=== PATIENT | female | born 1990 | race Caucasian/White ===

== ENCOUNTER 2017-02-25 08:55 | Emergency (ER) | payer OTHER ==
[~2017-02-25] VITALS: Ht 162.6 cm; Wt 82.5 kg
[2017-02-25 09:21] VITALS: BP 123/73
== END 2017-02-25 10:26 | disposition left against medical advice (07) ==
LOC: ED 08:55
DX: Z53.21 Procedure and treatment not carried out due to patient leaving prior to being seen by health care provider (principal)

== ENCOUNTER 2017-07-26 19:52 | Emergency (ER) | payer OTHER ==
[~2017-07-26] VITALS: Ht 162.6 cm; Wt 88.9 kg
[2017-07-26 22:15] VITALS: BP 117/66
== END 2017-07-26 22:15 | disposition home or self-care (01) ==
LOC: ED 19:52
DX: J06.9 Acute upper respiratory infection, unspecified (principal)
CPT/HCPCS: 87804

== ENCOUNTER 2017-12-26 06:02 | Emergency (ER) | payer OTHER ==
[~2017-12-26] VITALS: Ht 162.6 cm; Wt 79.9 kg
[2017-12-26 06:08] VITALS: Ht 162.6 cm; Wt 79.9 kg
[2017-12-26 06:49] VITALS: BP 119/83
== END 2017-12-26 06:49 | disposition home or self-care (01) ==
LOC: ED 06:02
DX: N39.0 Urinary tract infection, site not specified (principal)

== ENCOUNTER 2018-04-24 20:37 | Emergency (ER) | payer OTHER ==
[~2018-04-24] VITALS: Ht 162.6 cm; Wt 80.7 kg
[2018-04-24 20:42] VITALS: Ht 162.6 cm; Wt 80.7 kg
[2018-04-24 23:41] VITALS: BP 110/65
== END 2018-04-24 23:41 | disposition home or self-care (01) ==
LOC: ED 20:37
DX: N83.202 Unspecified ovarian cyst, left side (principal)

== ENCOUNTER 2018-05-23 11:55 | Emergency (ER) | payer OTHER ==
[~2018-05-23] VITALS: Ht 162.6 cm; Wt 81.2 kg
[2018-05-23 12:08] VITALS: BP 122/75; Ht 162.6 cm; Wt 81.2 kg
== END 2018-05-23 14:45 | disposition home or self-care (01) ==
LOC: ED 11:55
DX: J06.9 Acute upper respiratory infection, unspecified (principal); N83.209 Unspecified ovarian cyst, unspecified side

== ENCOUNTER 2019-04-29 16:48 | Emergency (ER) | payer OTHER ==
[~2019-04-29] VITALS: Ht 162.6 cm; Wt 87.5 kg
[2019-04-29 16:58] VITALS: Ht 162.6 cm; Wt 87.5 kg
[2019-04-29 20:57] VITALS: BP 117/1
== END 2019-04-29 20:57 | disposition home or self-care (01) ==
LOC: ED 16:48
DX: R10.2 Pelvic and perineal pain (principal); R31.9 Hematuria, unspecified; R10.30 Lower abdominal pain, unspecified; N83.209 Unspecified ovarian cyst, unspecified side

== ENCOUNTER 2020-07-09 15:58 | Emergency (ER) | payer OTHER ==
[~2020-07-09] VITALS: Ht 162.6 cm; Wt 86.2 kg
[2020-07-09 16:12] VITALS: Ht 162.6 cm; Wt 86.2 kg
[2020-07-09 17:10] LABS: BASOPHIL % 0.4 % (0.2-1.3); PLATELET COUNT 323 x10^3mcL (179-408)
[2020-07-09 17:10] LABS: UA SPECIFIC GRAVITY <=1.005 (1.005-1.035); microscopic required? YES; urine erythrocyte 3+ (NEGATIVE)
[2020-07-09 17:24] LABS: CALCIUM 8.6 mg/dL (8.5-10.1); CARBON DIOXIDE 25.1 mmol/L (21-32); CHLORIDE SERUM 103 mmol/L (98-107); CREATININE SERUM 0.6 mg/dL (0.6-1.0); GFR1 > 60 mL/min; GLUCOSE SERUM 95 mg/dL (74-106); POTASSIUM SERUM 3.7 mmol/L (3.5-5.1); SODIUM SERUM 136 mmol/L (136-145)
[2020-07-09 17:34] LABS: AMPHETAMINE QUAL UR NONE DETECTED (See below)
[2020-07-09 17:37] LABS: ALBUMIN 3.8 g/dL (3.4-5.0); ALKALINE PHOSPHATASE 85 U/L (46-116); ALT/SGPT 36 U/L (14-59); AST/SGOT 23 U/L (15-37); BILIRUBIN TOTAL 0.3 mg/dL (0.20-1.00); CHOLESTEROL 162 mg/dL (<200); HDL CHOLESTEROL 54 mg/dL (40-60); LIPASE 178 IU/L (73-393); MAGNESIUM 1.9 mg/dL (1.8-2.4); T4(THYROXINE) 8.3 ug/dL (4.7-13.3)
[2020-07-09 20:00] VITALS: BP 120/57
== END 2020-07-09 20:35 | disposition home or self-care (01) ==
LOC: ED 15:58
PROVIDERS: Emergency Medicine
DX: U07.1 COVID-19 (principal); F41.9 Anxiety disorder, unspecified; N39.0 Urinary tract infection, site not specified; I45.10 Unspecified right bundle-branch block
CPT/HCPCS: 82962; U0003